=== PATIENT | female | born 1970 | race Caucasian/White ===

== ENCOUNTER 2023-02-12 14:53 | Outpatient (CLI) | payer OTHER | END 2023-02-12 14:54 | disposition home or self-care (01) | LOC: BICMAMMO 14:53 | PROVIDERS: ATTEND Family Medicine | DX: Z12.31 Encounter for screening mammogram for malignant neoplasm of breast (principal); N63.20 Unspecified lump in the left breast, unspecified quadrant; Z91.89 Other specified personal risk factors, not elsewhere classified | CPT/HCPCS: 77063; 77067 ==

== ENCOUNTER 2023-02-20 14:44 | Outpatient (CLI) | payer OTHER | END 2023-02-20 14:45 | disposition home or self-care (01) | LOC: BICMAMMO 14:44 | PROVIDERS: ATTEND Family Medicine | DX: N63.20 Unspecified lump in the left breast, unspecified quadrant (principal); N64.89 Other specified disorders of breast | CPT/HCPCS: G0279 ==

== ENCOUNTER 2023-12-23 14:43 | Outpatient (CLI) | payer OTHER | END 2023-12-23 14:44 | disposition home or self-care (01) | LOC: BICCT 14:43 | PROVIDERS: ATTEND Family Medicine | DX: Z12.2 Encounter for screening for malignant neoplasm of respiratory organs (principal); F17.210 Nicotine dependence, cigarettes, uncomplicated | CPT/HCPCS: 71271 ==

== ENCOUNTER 2024-10-05 19:17 | Emergency (ER) | payer OTHER, SELFPAY ==
[~2024-10-05 19:17] MED LIST: Iopamidol-370 76% 500 ML MDV (1 ML CHARGE) ONE
[2024-10-05] MEDS ORDERED: Aspirin Chewable 81 MG TAB ONE (19:48)
[2024-10-05 19:52] LABS: #Basophils Less than 0.03 10x3/uL (0.0-0.2); %Basophils 0.3 % (0.0-1.0); %Eosinophils 4.3 % (0.0-10.0); %Monocytes 4.7 % (0.0-10.0); %Neutrophils 52.5 % (42.0-75.0); Hematocrit 43.9 % (36.0-47.0); Hemoglobin 15.5 g/dL (12.0-16.0); Mean Corpuscular HGB CONC 35.3 g/dL (32.0-36.0); Mean Corpuscular Hemoglobin 35.8 pg (27.0-31.0); Mean Corpuscular Volume 101.4 fL (78.0-98.0); Mean Platelet Volume 9.8 fL (7.4-10.4); Platelet Count 199 10x3/uL (130-400); RBC Distribution Width 12.8 % (11.5-14.5); Red Blood Cell (RBC) Count 4.33 mill/uL (4.20-5.40)
[2024-10-05 20:19] LABS: Troponin I Less than 0.010 ng/mL (< 0.028)
[2024-10-05 20:20] LABS: ALT (SGPT) 47 U/L (Less than 34); AST (SGOT) 46 U/L (11-34); Albumin 3.8 g/dL (3.1-4.5); Alkaline Phosphatase 63 U/L (40-110); Anion Gap 15 mmol/L (10-20); BUN (Urea Nitrogen) 9 mg/dL (9.8-20.1); Bilirubin, Total 0.2 mg/dL (0.3-1.2); Calc. Creatinine Clearance 0 mL/min (70-130); Calcium 8.5 mg/dL (7.8-10.44); Carbon Dioxide 22 mmol/L (22-29); Chloride 113 mmol/L (98-107); Estimated GFR 103; Globulin 2.7 g/dL (2.4-3.5); Glucose 77 mg/dL (70-105); Potassium 3.6 mmol/L (3.5-5.1); Protein, Total 6.5 g/dL (6.0-8.3); Sodium 146 mmol/L (136-145)
[2024-10-05 21:51] LABS: Lipase 29 U/L (8-78)
[2024-10-05 21:53] LABS: Acetaminophen Less than 10 mcg/mL (Less than 10); Alcohol 271.3 mg/dL (Less than 10); Salicylate Less than 8.0 mg/dL (Less than 8.0)
== END 2024-10-05 21:50 | disposition home or self-care (01) ==
LOC: ERS 19:17
DX: R53.1 Weakness (principal); R07.9 Chest pain, unspecified; Z55.9 Problems related to education and literacy, unspecified; F17.210 Nicotine dependence, cigarettes, uncomplicated
CPT/HCPCS: 71045; 71275; 80053; 80307; 83690; 84443; 84484; 85025; 85379; 93005; 94760; Q9967